=== PATIENT | female | born 2000 | race Caucasian/White ===

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

== ENCOUNTER 2024-12-19 10:19 | Inpatient (IN) ==
[2024-12-19] MEDS ORDERED: LIDOCAINE 1% LOCAL 20 ML VIAL INFIL PRN (13:59)
[2024-12-19] MEDS: LACTATED RINGER'S 1,000 ML IV PRN (14:13)
--- NOTE | 2024-12-19 14:33 | History & Physical Report ---
Date of Service December 19, 2024 Assessment & Plan (1) Uterine contractions: (2) Active labor at term: Plan: 24-year-old -0-1-1 at 39 weeks 5 days of gestation presenting today with regular contractions and cervical change, active labor, Vital signs stable afebrile, heart rate reassuring, GBS negative, Plan to admit, monitor, labs, epidural for pain per patient request, anticipate , All questions were answered. Admission and Anticipated Discharge Date Admission Date: December 19, 2024 History of Present Illness Primary Care Provider: Ashley Austin DO Patient is a 24-year-old -0-1-1 at 39 weeks and 5 days of gestation who woke up this morning with mild irregular contractions around 4:30 AM. They got more regular and painful over time and she came to labor and delivery this morning around 11. Her cervix was 1 cm thick and posterior she woke for about 2 hours and then started to have more regular and painful contractions around 1 PM. Her cervix is now 3 to 4 cm, 70%, with bulging bag, she is being admitted for labor. She denies leakage of fluid or vaginal bleeding. She reports good movements. Her has been uncomplicated, GBS negative, no medical problems. Allergies Allergy/AdvReac Type Severity Reaction Status Date / Time No Known Allergies Allergy Verified 12/08/24 21:46 Home Medications Medication Instructions Recorded Confirmed Type iohhrdbg-wvm-Vw-FA 1 mg 1 tab PO DAILY 06/09/21 12/19/24 History tablet famotidine 20 mg tablet (Pepcid) 20 mg PO HS 12/08/24 12/19/24 History Patient History Medical History (Updated 12/19/24 @ 14:32 by Dinorah Chanel MD) Lyme disease Viral warts Chlamydial cervicitis Migraine Anxiety Surgical History No pertinent past surgical history Social History (Updated 12/19/24 @ 10:57 by Bouchra Jiménez RN) Smoking Status: Never smoker Cigarettes Per Day: 0; Second Hand Exposure: No; Do You Dip or Chew Tobacco: No; Hx Alcohol Use: No Hx Substance Use: No Preferred Language: Kinyarwanda Communication Ability: Effective Panel Laminator Required: No Beliefs That Will Affect Care: None marital status: Single Current Living Situation: Significant Other current occupational status: unemployed Other Information That Helps Us Care for You: No Feels Safe at Home: Yes Safety Concerns: Feels Safe At This Time OB History Full-term 2021, 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 No history of genital herpes or gonorrhea. Review of Systems as per Subjective / HPI Physical Exam Constitutional: WD/WN, vitals as above well developed, well nourished and + acute distress Genitourinary: normal external appearance OB Exam Abdomen: + vertex Manual OB Exam: + cervical dilation 4 cm, + cervical effacement 70% and + station -2 Results & Data Vital Signs (Past 12 Hours) Vital Signs Temp Pulse Resp BP 12/19/24 13:31 91 H 12/19/24 13:31 120/60 12/19/24 13:30 18 12/19/24 13:30 36.7 C 18 12/19/24 12:26 85 12/19/24 12:26 121/63 12/19/24 11:14 77 12/19/24 11:14 125/74 12/19/24 11:14 16 12/19/24 11:14 37.2 C 16 12/19/24 10:46 36.6 C 77 20 123/81 12/19/24 10:43 77 123/81 12/19/24 10:42 20 12/19/24 10:42 36.6 C 20
[2024-12-19 14:40] LABS: Hematocrit (blood only) 40.0 % (37.0-47.0); Hemoglobin 13.4 g/dl (12.0-16.0); Mean Corpuscular Hemoglobin 29.1 pg (25.0-34.0); Mean Corpuscular Volume 86.8 fL (80.0-100.0); Platelet Count 276 K/uL (130-400); RDW Standard Deviation 42.1 fL (36.4-46.3); Red Blood Count 4.61 M/uL (4.20-5.40); White Blood Count 10.47 K/ul (4.8-10.8)
[2024-12-19] MEDS ORDERED: BUPIVACAINE 0.25% PF 30 ML VIAL EPI PRN (14:53)
[2024-12-19] MEDS ORDERED: LIDOCAINE 2% MPF LOCAL 5 ML VIAL EPI PRN (14:53)
[2024-12-19] MEDS ORDERED: SODIUM CHLORIDE 0.9% PF INJ 10 ML VIAL EPI PRN (14:53)
[2024-12-19] MEDS ORDERED: diphenhydrAMINE 50 MG/ML VIAL IV PRN (14:53)
[2024-12-19] MEDS ORDERED: NALOXONE HCL 1 MG in SODIUM CHLORIDE 0.9% 1,000 ML IV PRN (14:53)
[2024-12-19] MEDS ORDERED: fentANYL 2 MCG/ML BUPIVacaine 0.125%-NSS 100ML BAG EPI PRN (14:53)
[2024-12-19] MEDS ORDERED: NALOXONE HCL 0.4 MG/1 ML VIAL/CARP IV PRN (14:53)
[2024-12-19] MEDS ORDERED: ROPIVACAINE 0.5% PF 5 MG/ML 20 ML VIAL EPI PRN (14:53)
[2024-12-19] MEDS ORDERED: NALBUPHINE HCL INJ 10 MG/ML AMP IV PRN (14:53)
--- NOTE | 2024-12-19 14:53 | Anesthesiology Consultation ---
Date of Service December 19, 2024 Assessment & Plan Chart Review Chart Review: Acceptable Risk for Labor Epidural Consults Requested none History Height/Weight Height: 5 ft 6.75 in Weight: 107.501 kg Allergies Allergy/AdvReac Type Severity Reaction Status Date / Time No Known Allergies Allergy Verified 12/08/24 21:46 Medications Home Medications Medication Instructions Recorded Confirmed Last Taken pmimogii-roy-Dy-FA 1 mg 1 tab PO DAILY 06/09/21 12/19/24 12/16/24 22:00 tablet famotidine 20 mg tablet (Pepcid) 20 mg PO HS 12/08/24 12/19/24 12/12/24 22:00 Active Medications Generic Name Dose Route Start Last Admin Trade Name Freq PRN Reason Stop Dose Admin Lactated Ringer's 1,000 mls @ 150 mls/hr 12/19/24 13:59 12/19/24 14:13 Lr IV 12/21/24 13:58 999 mls/hr .[id number] PRN Administration L&D Protocol Protocol Past Medical History Medical History (Updated 12/19/24 @ 14:32 by Dinorah Chanel MD) Lyme disease Viral warts Chlamydial cervicitis Migraine Anxiety Past Surgical History Surgical History No pertinent past surgical history Social History Smoking Status: Never smoker tobacco type: cigarettes Smoking cigarettes per day: 0 Do You Dip or Chew Tobacco: No Hx Alcohol Use: No Hx Substance Use: No substance use type: does not use Physical Exam Vital Signs Last Vital Signs Temp 36.7 C 12/19/24 13:30 Pulse 91 H 12/19/24 13:31 Resp 18 12/19/24 13:30 BP 120/60 12/19/24 13:31 Testing Laboratory Results 12/19/24 14:19
[2024-12-19] MEDS: LIDOCAINE 2%/EPINEPHRINE 1:200,000 20 ML PF ONE (15:20)
[2024-12-19] MEDS: fentANYL 2 MCG/ML BUPIVacaine 0.125%-NSS 100ML BAG ONE (15:27)
--- NOTE | 2024-12-19 15:58 | Obstetrical Progress Note ---
Date of Service December 19, 2024 Assessment & Plan Admission and Anticipated Discharge Date Admission Date: December 19, 2024 Subjective Patient has epidural, now comfortable, Vital signs stable afebrile, Related category 1, Contractions every 2 to 3 minutes, Vaginal exam, cervix is 5 cm dilated, 80% effaced, large bulging bag, AROM, dark meconium stained fluid, lanugo present, head at -2 station Continue to monitor closely, Anticipate Results & Data Vital Signs (Past 12 Hours) Vital Signs Temp Pulse Resp BP Pulse Ox 12/19/24 15:54 100 12/19/24 15:54 78 12/19/24 15:53 88 12/19/24 15:53 117/70 12/19/24 15:49 100 12/19/24 15:49 100 H 12/19/24 15:47 100 H 12/19/24 15:47 116/62 12/19/24 15:45 87 12/19/24 15:45 121/69 12/19/24 15:44 100 12/19/24 15:44 95 H 12/19/24 15:43 71 12/19/24 15:43 123/61 12/19/24 15:39 100 12/19/24 15:39 83 12/19/24 15:39 100/54 L 12/19/24 15:37 86 12/19/24 15:37 110/62 12/19/24 15:35 95 H 12/19/24 15:35 126/66 12/19/24 15:34 100 12/19/24 15:34 80 12/19/24 15:33 90 12/19/24 15:33 86 12/19/24 15:33 96 H 12/19/24 15:33 118/56 L 12/19/24 15:31 93 H 12/19/24 15:31 115/59 L 12/19/24 15:29 90 12/19/24 15:29 114/55 L 12/19/24 15:29 100 12/19/24 15:29 100 H 12/19/24 15:27 76 12/19/24 15:27 127/67 12/19/24 15:25 84 12/19/24 15:25 125/72 12/19/24 15:24 98 12/19/24 15:24 82 12/19/24 15:21 86 12/19/24 15:21 134/72 12/19/24 15:19 100 12/19/24 15:19 90 12/19/24 15:19 139/67 12/19/24 15:17 106 H 12/19/24 15:17 130/66 12/19/24 15:15 99 H 12/19/24 15:15 138/72 12/19/24 15:14 80 L 12/19/24 15:14 105 H 12/19/24 15:13 103 H 12/19/24 15:13 139/70 12/19/24 15:11 96 H 12/19/24 15:11 126/82 12/19/24 15:09 96 12/19/24 15:09 88 12/19/24 15:09 126/82 12/19/24 15:04 100 12/19/24 15:04 84 12/19/24 14:00 18 12/19/24 14:00 18 12/19/24 13:31 91 H 12/19/24 13:31 120/60 12/19/24 13:30 18 12/19/24 13:30 36.7 C 18 12/19/24 12:26 85 12/19/24 12:26 121/63 12/19/24 11:14 77 12/19/24 11:14 125/74 12/19/24 11:14 16 12/19/24 11:14 37.2 C 16 12/19/24 10:46 36.6 C 77 20 123/81 12/19/24 10:43 77 123/81 12/19/24 10:42 20 12/19/24 10:42 36.6 C 20
[2024-12-19] MEDS: BUPIVACAINE 0.25% PF 30 ML VIAL EPI STA (16:59)
[2024-12-19] MEDS: BUPIVACAINE 0.25% PF 30 ML VIAL ONE (16:59)
[2024-12-19] MEDS: LIDOCAINE 2%/EPINEPHRINE 1:200,000 20 ML PF EPI STA (17:00)
[2024-12-19] MEDS: SODIUM CHLORIDE 0.9% PF INJ 10 ML VIAL ONE (17:00)
[2024-12-19] MEDS ORDERED: OXYTOCIN 30 UNITS/NSS 30 UNITS/500 ML BAG IV PRN ×2 (17:18→17:44)
[2024-12-19] MEDS: OXYTOCIN 30 UNITS/NSS 30 UNITS/500 ML BAG IV PRN (17:38)
[2024-12-19] MEDS ORDERED: HYDROCORTISONE ACETATE 25 MG SUPP PR PRN (17:44)
[2024-12-19] MEDS ORDERED: ACETAMINOPHEN 325 MG TAB PO PRN (17:44)
[2024-12-19] MEDS ORDERED: BENZOCAINE 20% SPRY 85 APPLN/85 GM CAN EXT PRN (17:44)
--- NOTE | 2024-12-19 17:47 | Delivery Summary ---
Vaginal Delivery Summary Date of Service December 19, 2024 Vaginal Delivery Summary Patient was found to be fully dilated and desired to push. She pushed with 3 contractions and delivered the head and then shoulders with minimal traction. The baby was handed off to the mother. The cord was clampedx2 and cut at 1 minute. The vagina and perineum were checked and found to be intact. The placenta was delivered spontaneously as intact and complete. The uterus was explored and found to be empty. QBL was 85 ml. The fundus was firm. The baby was a viable female , Apgars 8/9, the weight is pending The mother and the baby tolerated the procedure well. No complications happened and I was present during whole procedure.
[2024-12-19] MEDS: MEASLES, MUMPS & RUBELLA VIRUS VACCINE (MMR) 0.5ML VIAL SQ ONE (18:11)
[2024-12-19] MEDS: DIPHTHER/TETAN/PERTUS Vaccine (Tdap, Adol/Adult) 0.5mL IM ONE (18:11)
[2024-12-19] MEDS: KETOCONAZOLE 2% CR 15 GM TUBE EXT SCH (18:12)
--- NOTE | 2024-12-19 18:38 | Anesthesia Procedure Note ---
Date of Service December 19, 2024 Anesthesia Post Epidural Note Vital Signs Vital Signs: Temp Pulse Resp BP Pulse Ox O2 Del Method 36.9 C 75 16 113/64 100 Room Air 12/19/24 18:15 12/19/24 18:34 12/19/24 18:15 12/19/24 18:30 12/19/24 18:34 12/19/24 11:30 Pain Intensity Abdomen: Pain Intensity: 0 Notes Mental Status: alert / awake / arousable and participated in evaluation Nausea / Vomiting: adequately controlled Pain: adequately controlled Airway Patency, RR, SpO2: stable & adequate BP & HR: stable & adequate Hydration State: stable & adequate Neuraxial Anesthesia: was administered and sensory block is resolving Anesthetic Complications: no major complications apparent and Pt Satisfied with anesthetic care Epidural: Removed without complications and With tip intact
[2024-12-20] MEDS: IBUPROFEN 600 MG TAB PO PRN (03:55)
[2024-12-20] MEDS: ACETAMINOPHEN 325 MG TAB PO PRN (03:55)
[2024-12-20] MEDS: SODIUM CHLORIDE 0.9% PF INJ 10 ML VIAL EPI STA (05:08)
[2024-12-20 08:08] LABS: Hematocrit (blood only) 37.3 % (37.0-47.0); Hemoglobin 12.3 g/dl (12.0-16.0); Mean Corpuscular Hemoglobin 28.5 pg (25.0-34.0); Mean Corpuscular Volume 86.3 fL (80.0-100.0); Platelet Count 218 K/uL (130-400); RDW Standard Deviation 42.1 fL (36.4-46.3); Red Blood Count 4.32 M/uL (4.20-5.40); White Blood Count 9.94 K/ul (4.8-10.8)
[2024-12-20] MEDS: PRENATAL VITAMIN 1 TAB PO SCH (08:30)
[2024-12-20] MEDS: FERROUS SULFATE 325 MG TAB PO SCH (08:31)
[2024-12-20] MEDS: DOCUSATE SODIUM 100 MG CAP PO SCH (08:31)
--- NOTE | 2024-12-20 10:10 | Obstetrical Progress Note ---
Date of Service December 20, 2024 Assessment & Plan Admission and Anticipated Discharge Date Admission Date: December 19, 2024 Subjective Patient is seen and examined. She feels well, no complaints. Ambulating without dizziness Voiding without difficulty Tolerating regular diet with out N&V Bleeding is minimal No fever/ chills/ CP/ SOB/ N&V/ Leg pain Breast feeding without problems Vital Signs Temp Pulse Resp BP Pulse Ox O2 Del Method 12/20/24 08:46 36.4 C L 81 16 120/73 97 Room Air 12/20/24 08:46 Room Air 12/20/24 03:45 36.5 C 77 16 105/69 96 Room Air 12/20/24 00:35 36.5 C 75 18 106/68 97 Room Air Lab Results 12/19/24 12/20/24 Range/Units 14:19 07:44 WBC 10.47 9.94 (4.8-10.8) K/ul RBC 4.61 4.32 (4.20-5.40) M/uL Hgb 13.4 12.3 (12.0-16.0) g/dl Hct 40.0 37.3 (37.0-47.0) % MCV 86.8 86.3 (80.0-100.0) fL MCH 29.1 28.5 (25.0-34.0) pg MCHC 33.5 33.0 (32.0-36.0) g/dL RDW Std Deviation 42.1 42.1 (36.4-46.3) fL RDW Coeff of Radha 13.4 13.4 (11.5-14.5) % Plt Count 276 218 (130-400) K/uL MPV 10.4 10.4 (9.4-12.4) fL Treponema pallidum Ab Negative (Negative) PE: General: Alert, orientedx3, NAD Abd: soft, NT, fundus firm, below Umbilicus Perineum intact, Lochia rubra minimal Ext; NT, no edema AP: 24 yo s/p , ppd# 1 VSS Afebrile doing well Continue routine care All questions were answered D/C home tomorrow Results & Data Vital Signs (Past 12 Hours) Vital Signs Temp Pulse Resp BP Pulse Ox O2 Del Method 12/20/24 08:46 36.4 C L 81 16 120/73 97 Room Air 12/20/24 08:46 Room Air 12/20/24 03:45 36.5 C 77 16 105/69 96 Room Air 12/20/24 00:35 36.5 C 75 18 106/68 97 Room Air
[2024-12-20] MEDS: CALCIUM CARBONATE 500 MG CHEWABLE TAB PO PRN (20:34)
[2024-12-21 07:42] LABS: Hematocrit (blood only) 39.0 % (37.0-47.0); Hemoglobin 12.6 g/dl (12.0-16.0)
[2024-12-21 08:33] VITALS: BP 100/77; PULSE 77; RESP 16; TEMP 97.7; O2SAT 96
--- NOTE | 2024-12-21 10:42 | Obstetrical Progress Note ---
Date of Service December 21, 2024 Subjective Ambulation: ambulating normally Voiding: no voiding problems Passing Gas:: Yes Lochia:: Small Feeding Type:: breast feeding Current Pain Level(1-10): 0 doing well. d/c today. Physical Exam Constitutional WD/WN, vitals as above Gastrointestinal (Abdomen) Inspection/Auscultation: abdomen normal to inspection abdomen soft and non-tender. fundus firm below U. Musculoskeletal no cyanosis or clubbing, extremities motor strength 5/5 Skin no rashes, warm and dry Neurologic patellar DTR's 2+ bilat, sensation intact Psychiatric A+Ox3, euthymic affect Results & Data Vital Signs (Past 12 Hours) Vital Signs Temp Pulse Pulse Resp BP Pulse Ox O2 Del Method 12/21/24 09:38 36.5 C 77 16 100/77 96 12/21/24 07:05 36.5 C 77 16 100/77 96 Room Air 12/20/24 22:59 36.6 C 65 18 101/66 Room Air Laboratory Results Laboratory Results - last 72 hr 12/19/24 12/20/24 12/21/24 14:19 07:44 07:29 WBC 10.47 9.94 RBC 4.61 4.32 Hgb 13.4 12.3 12.6 Hct 40.0 37.3 39.0 MCV 86.8 86.3 MCH 29.1 28.5 MCHC 33.5 33.0 RDW Std Deviation 42.1 42.1 RDW Coeff of Radha 13.4 13.4 Plt Count 276 218 MPV 10.4 10.4 Treponema pallidum Ab Negative
== END 2024-12-21 11:58 | disposition home or self-care (01) | DRG 807 ==
LOC: OPB 10:19 → 4S1 10:22 → 4E2 20:40